=== PATIENT | female | born 1940 | race Caucasian/White ===

== ENCOUNTER → 2016-08-21 | Outpatient (CLI) | payer MEDICARE, BC | LOC: MC.RAD 10:40 | DX: Z12.31 Encounter for screening mammogram for malignant neoplasm of breast (principal); D24.2 Benign neoplasm of left breast; D24.1 Benign neoplasm of right breast ==

== ENCOUNTER → 2017-10-09 | Outpatient (CLI) | payer MEDICARE, BC | LOC: MC.RAD 10:16 | DX: Z12.31 Encounter for screening mammogram for malignant neoplasm of breast (principal) ==

== ENCOUNTER → 2018-10-10 | Outpatient (CLI) | payer MEDICARE, BC | LOC: MC.RAD 09:22 | DX: Z12.31 Encounter for screening mammogram for malignant neoplasm of breast (principal) ==

== ENCOUNTER → 2020-04-09 | Outpatient (CLI) | payer MEDICARE, BC | LOC: COL.RAD 10:48 | DX: Z01.812 Encounter for preprocedural laboratory examination (principal); L81.9 Disorder of pigmentation, unspecified; I70.209 Unspecified atherosclerosis of native arteries of extremities, unspecified extremity | CPT/HCPCS: Q9967 ==

== ENCOUNTER → 2022-02-15 | Outpatient (RCR) | payer MEDICARE, BC | END | disposition home or self-care (01) | LOC: MKS.ESL.PT | DX: G62.9 Polyneuropathy, unspecified (principal) ==

== ENCOUNTER → 2022-02-15 | Outpatient (RCR) | payer SELFPAY | END | disposition still patient (30) | LOC: MKS.ESL.PT | DX: G62.9 Polyneuropathy, unspecified (principal); G52.9 Cranial nerve disorder, unspecified; R20.2 Paresthesia of skin ==

== ENCOUNTER 2022-04-27 12:21 | Outpatient (CLI) | payer MEDICARE, BC ==
[~2022-04-27] VITALS: Ht 162.6 cm; Wt 66.6 kg
[2022-04-27] MEDS ORDERED: ARMOUR THYROID60 MG PO (12:40)
[2022-04-27] MEDS ORDERED: TOPROL XL 25MG25 MG PO (12:40)
[2022-04-27] MEDS ORDERED: ALDACTONE50 MG PO (12:41)
[2022-04-27] MEDS ORDERED: LIPITOR 10MG10 MG PO (12:43)
[2022-04-27] MEDS ORDERED: NEURONTIN100 MG/CAP PO (12:43)
[2022-04-27] MEDS ORDERED: THEROMEGA1000 MG PO (12:44)
[2022-04-27] MEDS ORDERED: MELATONIN ER10 MG PO (12:45)
[2022-04-27] MEDS ORDERED: ONE-A-DAY ACTIV1 TAB PO (12:46)
[2022-04-27 12:53] VITALS: BP 160/87; PULSE 80; TEMP 97.9
[2022-04-27 14:40] VITALS: BP 154/80; PULSE 73
--- NOTE | 2022-04-27 15:10 | NUR ---
Per radiology nurse patient arrived to the floor at 1440. Dressing to back CD&I. Patient resting in bed. Ready to go home. Educated patient on the need to lay flat for 1 hour post procedure
[2022-04-27 15:15] VITALS: BP 141/82; PULSE 73
[2022-04-27 15:30] VITALS: BP 139/76; PULSE 71
[2022-04-27 15:45] VITALS: BP 138/77; PULSE 72
--- NOTE | 2022-04-27 16:02 | NUR ---
Bandaid remains to back. CD&I. Patient assisted sloan preston. No dizziness or numbness in lower extremities. Discharge instructions reviewed. Patient discharged ambulatory at this time
== END 2022-04-27 16:05 ==
LOC: COL.RAD 12:21
DX: M48.061 Spinal stenosis, lumbar region without neurogenic claudication (principal); M51.26 Other intervertebral disc displacement, lumbar region
CPT/HCPCS: Q9965